=== PATIENT | male | born 1960 | race Caucasian/White ===

== ENCOUNTER 2023-11-23 07:39 | Day surgery (SDC) | payer OTHER ==
[~2023-11-23] VITALS: Ht 175.3 cm; Wt 77.6 kg
[2023-11-23] MEDS ORDERED: LIDOCAINE 2% 100 MG/5 ML UJET TP ONE ×2 (09:04→10:25)
[2023-11-23] MEDS ORDERED: fentaNYL citrate 0.05 MG/ML VIAL ONE (09:04)
[2023-11-23] MEDS: fentaNYL citrate 0.05 MG/ML VIAL IVP ONE (09:27)
== END 2023-11-23 10:30 | disposition home or self-care (01) ==
LOC: MDS 07:39 → MMU 07:39 → MDS 10:30
PROVIDERS: ATTEND Internal Medicine Gastroenterology
DX: Z12.11 Encounter for screening for malignant neoplasm of colon (principal); K57.30 Diverticulosis of large intestine without perforation or abscess without bleeding; K63.5 Polyp of colon; I10 Essential (primary) hypertension; E78.5 Hyperlipidemia, unspecified; E11.9 Type 2 diabetes mellitus without complications; Z98.890 Other specified postprocedural states
CPT/HCPCS: 45385; 82948; J3010